=== PATIENT | female | born 1930 | race American Indian/Alaskan Native ===

== ENCOUNTER 2018-03-08 16:31 | Emergency (ER) | payer MEDICARE, MEDICAID ==
[~2018-03-08] VITALS: Ht 144.8 cm; Wt 52.6 kg
[2018-03-08 16:40] VITALS: BP_SYST 141
[2018-03-08] MEDS ORDERED: ACETAMINOPHEN/CODEINE 300 MG-30 MG TABLET PO ONE (17:15)
[2018-03-08 19:25] VITALS: BP_SYST 138
== END 2018-03-08 19:20 | disposition home or self-care (01) ==
LOC: SED 16:31
DX: M13.861 Other specified arthritis, right knee (principal); M13.862 Other specified arthritis, left knee; I10 Essential (primary) hypertension
CPT/HCPCS: 73564; 99284